=== PATIENT | female | born 1985 | race Caucasian/White ===

== ENCOUNTER 2018-03-31 12:51 | Inpatient (IN) | payer OTHER ==
--- NOTE | 2018-03-31 13:25 | HP ---
General Information - Reason for Visit labor - General Information Maternal Age: 32 Grav: 3 Para: 1 SAB: 0 IEA: 1 Estimated Due Date: 04/02/18 Determined By: Early Ultrasound Maternal Blood Type and Rh: A Positive - Results this Serology/RPR Result: Non-Reactive Rubella Result: Immune HBsAg Result: Negative HIV Result: Negative GBS Culture Result: Positive Past Medical History Delivery History: Hx Complicated Vaginal Delivery Delivery History Comment: prior cholestasis, preeclampsia, PPH Past Medical History Comment: Anxiety Pertinent Past Surgical History: None Pertinent Family History: See Records - Antepartal Records Antepartal Records: Reviewed, Uncomplicated Review of Systems Constitutional: Uncomfortable CV Complaint: No Respiratory: Shortness of Breath: No Gastrointestinal: Soft Stool Genitourinary: No Leaking Fluid Musculoskeletal: Contractions, Pressure Neurological: No Headache Movement: Normal Exam Allergies/Adverse Reactions: Allergies No Known Allergies Allergy (Verified 06/29/14 15:07) - Measurements Height: 5 ft 7 in Weight: 160 lb Weight in lbs: [id number] Body Mass Index (BMI): 25.0 Pre- Weight: 133 lb Weight Gained This : 27 lbs and 0 ozs - Exam Breast: - - soft, no masses Extremities: No Edema - extensive varicosity L leg/groin Heart: Normal Rhythm/Heart Sounds HEENT: No Significant Findings Lungs: Clear Bilaterally Thyroid: No Thyromegaly - Abdominal Exam Abdomen Exam: Non-Tender - Ultrasound/Biophysical Profile Ultrasound Status: Not Done Targeted Exam Findings Estimated Weight: 7 lbs Cervical Exam: 9cm Effacement: 100% Station: +2 Presenting Part: Vertex Membrane Status: Questionable SROM EFM Findings - External Monitor Findings Baseline Heart Rate: 140 External Monitor Findings Comment: pt unable to tolerate monitor Contractions: Regular - every 2 min, Strong Assessment/Plan - Assessment at 39 w 5 d, active labor. Delivery imminent, will not do PCN. Pt unable to stay still for IV start. Will try nitrous oxide - Obstetrical Risk Factors Obstetrical Risk Factors: GBS Positive - Plan Plan: Admit - Anticipate Vaginal Delivery - Date/Time of Admission Date of Admission: 03/31/18 Time of Admission: 12:50
[2018-03-31] MEDS ORDERED: Penicillin G Potassium IV* 5,000,000 UNITS in NS 0.9% 100 ML* 100 ML IVPB ONE (13:37)
[2018-03-31 13:43] LABS: ABS Basophils 0.1 10^3/ul (0-0.2); ABS Eosinophils 0 10^3/ul (0-0.6); ABS Lymphocytes 1.5 10^3/ul (1.0-4.8); ABS Monocytes 0.5 10^3/ul (0-0.8); ABS Neutrophils 9.3 10^3/ul (1.5-7.7); ABS Nucleated RBC 0 10^3/ul; Eosinophil % 0.2 % (0-6); Hematocrit 35 % (35-47); Hemoglobin 11.9 g/dl (12.0-16.0); Lymphocyte % 13.4 % (25-47); Mean Corpuscular HGB Conc 34 g/dl (31-36); Mean Corpuscular Hemoglobin 27 pg (27-31); Mean Corpuscular Volume 80 fL (80-97); Mean Platelet Volume 8.2 um3 (7.4-10.4); Nucleated Red Blood Cells % 0; Platelet Count 243 10^3/ul (150-450); Red Blood Count 4.38 10^6/ul (4.00-5.40); Red Cell Distribution Width 15 % (10.5-15); White Blood Count 11.5 10^3/ul (3.5-10.8)
[2018-03-31] MEDS ORDERED: Oxytocin in LR* 20 UNITS/1,000 ML BAG IVPB ONE (13:57)
[2018-03-31] MEDS ORDERED: fentaNYL* 50 MCG/ML 2 ML VIAL (100 MCG VIAL) ONE (14:07)
[2018-03-31] MEDS ORDERED: fentaNYL* 50 MCG/ML 2 ML VIAL (100 MCG VIAL) IV SLOW PU ONE (14:15)
[2018-03-31] MEDS ORDERED: Methylergonovine INJ* 0.2 MG/ML 1ML AMP ONE (14:27)
[2018-03-31] MEDS ORDERED: Ibuprofen TAB* 600 MG ONE (14:27)
[2018-03-31] MEDS ORDERED: Misoprostol TAB* 200 MCG ONE (14:27)
[2018-03-31] MEDS ORDERED: Witch Hazel PAD* JAR TOPICAL PRN (14:37)
[2018-03-31] MEDS ORDERED: Misoprostol TAB* 200 MCG PR ONE (14:37)
[2018-03-31] MEDS ORDERED: Methylergonovine INJ* 0.2 MG/ML 1ML AMP IM ONE (14:37)
[2018-03-31] MEDS ORDERED: Dibucaine 1% 28.35 GM TUBE PR PRN (14:37)
[2018-03-31] MEDS ORDERED: Glycerin ADULT SUPP PR PRN (14:37)
[2018-03-31] MEDS ORDERED: Oxytocin in LR* 20 UNITS/1,000 ML BAG IVPB SCH (15:00)
--- NOTE | 2018-03-31 15:59 | PROCNOTE ---
[facility] OB: Delivery Note - Delivery A Date of : 03/31/18 Time of : 13:58 [place] Sex: Female Weight at : 6 lb 11 oz Score 1 Minute: 9 Score 5 Minutes: 9 Gestational Age in Weeks and Days at Delivery: 39 Weeks and 5 Days Delivery Method: Spontaneous Vaginal Labor: Spontaneous Amniotic Fluid: Meconium Estimated Blood Loss: 500 Anesthesia/Analgesia: None Delivered By: Stephanie Christina - Nursery Level of Nursery: Regular/Bedside - Perineum Perineal Injury: None/Intact - Events Delivery Events of Note: Partial Course of Antibiotics, Post- Bleeding - Meds Given Delivery Events of Note Comment: pitocin IV infusion, 800mcg cytotec, 0.2mg methergine IM given pos delivery per provider. - Risk for Falls Delivered OB Patient- Risk for Falls: Heavy Bleeding Fall Risk: Patient is at High Risk for Falls - Additional Delivery Notes Additional Delivery Notes: SVB LFC, OA, over intact perineum, with pt standing at bedside. handed to pt, then assisted into bed. Placenta Ethan at 1403, IV with pitocin started immediately with fundal massage. Cytotec 800mcg given per rectum due to atony, followed by methergine 0.2 mg IM at 1409. EBL 500cc. Fentanyl 50 mcg IV given in divided dose due to pt discomfort during uterine massage.
[2018-03-31] MEDS: Acetaminophen TAB* 325 MG PO PRN (17:40)
[2018-03-31] MEDS: Docusate CAP* 100 MG PO SCH (20:15)
[2018-03-31] MEDS: Ibuprofen TAB* 600 MG PO PRN (20:15)
[2018-04-01] MEDS: Ibuprofen TAB* 600 MG PO PRN ×3 (05:54→20:04)
[2018-04-01 07:20] LABS: Hematocrit 31 % (35-47); Hemoglobin 10.6 g/dl (12.0-16.0); Mean Corpuscular HGB Conc 34 g/dl (31-36); Mean Corpuscular Hemoglobin 27 pg (27-31); Mean Corpuscular Volume 81 fL (80-97); Mean Platelet Volume 8.4 um3 (7.4-10.4); Platelet Count 191 10^3/ul (150-450); Red Blood Count 3.89 10^6/ul (4.00-5.40); Red Cell Distribution Width 15 % (10.5-15); White Blood Count 10.5 10^3/ul (3.5-10.8)
[2018-04-01] MEDS: Acetaminophen TAB* 325 MG PO PRN (07:39)
[2018-04-01] MEDS ORDERED: oxyCODONE/Acetamin 5/325 MG* TAB ONE (08:23)
[2018-04-01] MEDS: oxyCODONE/Acetamin 5/325 MG* TAB PO PRN (08:25)
[2018-04-01] MEDS ORDERED: Ferrous Gluconate TAB* 324 MG TAB PO SCH (09:00)
[2018-04-01] MEDS: Docusate CAP* 100 MG PO SCH ×3 (09:21→20:04)
[2018-04-02] MEDS: Ibuprofen TAB* 600 MG PO PRN ×2 (03:07→08:53)
[2018-04-02] MEDS: oxyCODONE/Acetamin 5/325 MG* TAB PO PRN (07:26)
[2018-04-02 08:50] VITALS: BP 131/70
[2018-04-02] MEDS: Docusate CAP* 100 MG PO SCH (08:53)
== END 2018-04-02 13:58 | disposition home or self-care (01) | DRG 774 ==
LOC: MCHOBOUT 12:51 → MCHOB 12:54
PROVIDERS: ADMIT Midwife; ATTEND Midwife
PROC: 10E0XZZ Delivery of Products of Conception, External Approach (ICD-10-PCS; principal; 2018-03-31)
PROC: 0W3J3ZZ Control Bleeding in Pelvic Cavity, Percutaneous Approach (ICD-10-PCS; 2018-03-31)
DX: O77.0 Labor and delivery complicated by meconium in amniotic fluid (principal); O72.1 Other immediate postpartum hemorrhage; O99.824 Streptococcus B carrier state complicating childbirth; Z3A.39 39 weeks gestation of pregnancy; Z37.0 Single live birth
CPT/HCPCS: 36415; 85025; 85027; 86850; 86900; 86901; A9270-GY; J2210; J2540; J3010